=== PATIENT | male | born 1960 | race Caucasian/White ===

== ENCOUNTER → 2020-11-10 | Emergency (ER) | payer MEDICAID ==
[~2020-11-10] VITALS: Ht 170.2 cm; Wt 63.5 kg
[~2020-11-10] MED LIST: Oxymetazoline 0.05% Na Spray 30ml NASAL ONE
--- NOTE | 2020-11-10 09:30 | NUR ---
ED Nurse Note: Pt walked in c/o frequent nosebleeds x 1 week. Pt had recent fall and head injury on 10/07 and seen in an ER. Respirtions even and unlabored on room air. Vitals stable as documented. A+Ox4, speaking in complete sentences.
[2020-11-10 09:45] VITALS: BP 133/64
--- NOTE | 2020-11-10 10:15 | Emergency Room Report ---
History of Present Illness General Chief Complaint: Nosebleed Source: Patient Present Illness HPI 60-year-old male with no relevant past medical history here with right-sided nosebleed intermittently for 1 week. Patient says that 2 weeks ago he had a mechanical fall and struck the right side of his forehead on the ground. He went to an outside emergency department but did not undergo any imaging. Says that 1 week after the fall he began to have intermittent right-sided nosebleeds. They last for only a few minutes at a time and stop on their own. Patient does not take blood thinners. No fevers, chills, chest pain, palpitation, shortness of breath, headache, vision changes, focal numbness or weakness, neck stiffness, neck pain, back pain, abdominal pain, nausea, vomiting, diarrhea, dysuria. States he never feels the blood dripping down the back of his throat. Allergies: Coded Allergies: No Known Allergies (Unverified , 11/10/20) COVID-19 Screening Contact w/high risk pt: No Experienced COVID-19 symptoms?: No COVID-19 Testing performed COORDINATOR HOTELS: No Nursing Documentation-[facility] Past Medical History: No History, Except For Review of Systems All Other Systems: negative except mentioned in HPI Physical Exam Vital Signs Date Time Temp Pulse Resp B/P (MAP) Pulse Ox O2 Delivery O2 Flow Rate FiO2 11/10/20 09:23 98.1 89 18 127/69 (88) 91 Room Air Sp02 EP Interpretation: reviewed, normal General Appearance: no apparent distress, alert, non-toxic Head: normocephalic, atraumatic Eyes: bilateral eye normal inspection, bilateral eye PERRL ENT: hearing grossly normal, normal pharynx, no angioedema, normal voice, other - Dried blood in right nares. No active bleeding Neck: full range of motion, supple/symm/no masses Respiratory: chest non-tender, lungs clear, normal breath sounds, speaking full sentences Cardiovascular #1: regular rate, rhythm, no edema Cardiovascular #2: 2+ carotid (R), 2+ carotid (L), 2+ radial (R), 2+ radial (L), 2+ dorsalis pedis (R), 2+ dorsalis pedis (L) Gastrointestinal: normal bowel sounds, non tender, soft, non-distended, no guarding, no rebound Rectal: deferred Genitourinary: normal inspection, no CVA tenderness Musculoskeletal: back normal, normal range of motion, gait/station normal, non- tender Neurologic: alert, motor strength/tone normal, oriented x3, sensory intact, responsive, speech normal Psychiatric: judgement/insight normal, memory normal, mood/affect normal, no suicidal/homicidal ideation Lymphatic: no adenopathy Medical Decision Making Diagnostic Impression: Primary Impression: Epistaxis ER Course 60-year-old male here with right naris epistaxis. Patient said that he had a mechanical fall 2 weeks ago and began having right-sided nosebleeds a week after that. Patient has been concerned because he normally never gets nosebleeds. He had no signs of active bleeding here in the emergency department. There is a small amount of dried blood in his right naris but no active bleeding. Patient says he has not had the sensation of blood dripping down the back of his throat. No worry at this time for posterior bleed. Patient does not take blood thinners. Had normal vital signs including normal blood pressure and heart rate. Was in no distress. He later told me that he has had multiple Covid swabs "and they always go in my right nostril." CT facial bones did not reveal any acute abnormalities. Patient was given a bottle of Afrin to use as needed. Told to return to the emergency department if Afrin and pressure alone are not enough to stop nosebleeds. He was given instruction to avoid trauma to the nares until his nosebleeds cease. He will follow-up with his primary care provider. Discharged in stable condition. Last Vital Signs Date Time Temp Pulse Resp B/P (MAP) Pulse Ox O2 Delivery O2 Flow Rate FiO2 11/10/20 09:23 98.1 89 18 127/69 (88) 91 Room Air Brennen Neff M.D. Nov 10, 2020 10:15
--- NOTE | 2020-11-10 10:35 | NUR ---
discharged home with instruction and rx follow up with pmd
[2020-11-10 10:45] VITALS: BP 133/64
--- NOTE | 2020-11-10 10:55 | Diagnostic Imaging Report ---
EXAM: CT CT Facial Bones no Contrast CLINICAL HISTORY: History of recent fall 10/07/20. Frequent nosebleeds x1 week. TECHNIQUE: Axial images obtained through the face with subsequent sagittal and coronal reformat images. All CT scans at this facility are performed using dose modulation techniques as appropriate to a performed exam including the following: automated exposure control with adjustment of the mA and/or kV according to patient size. RADIATION DOSE: CTDIvol: 15.3 mGy DLP: 379.7 mGy-cm Dose information generated by the CT scanner is available in PACS. COMPARISON: None FINDINGS: Bony structures of the face appear intact. The orbits appear unremarkable. The zygomatic arches are intact. The pterygoid plates show normal configuration. There is mucosal thickening in bilateral maxillary sinuses left greater than right. No air-fluid level demonstrated. The mandible and TMJs are intact. Soft tissue of the face appears unremarkable. Degenerative changes of the cervical spine noted. IMPRESSION: NO EVIDENCE OF ACUTE MAXILLOFACIAL FRACTURE. MAXILLARY SINUS DISEASE.
== END | disposition home or self-care (01) ==
LOC: EMR 10:15
DX: R04.0 Epistaxis (principal); Z91.81 History of falling
CPT/HCPCS: 70486; Z7502; 99284